=== PATIENT | male | born 1955 | race Caucasian/White ===

== ENCOUNTER 2018-04-25 06:39 | Day surgery (SDC) | payer OTHER ==
[~2018-04-25] VITALS: Ht 177.8 cm; Wt 95.3 kg
[~2018-04-25 06:39] MED LIST: CEPHALEXIN500 M1 PO; CIPRO 500MG TA500 MG PO; ERY-TAB500 MG PO; FENOFIBRATE160 MG PO; FISH OIL 1000MG1 CAP PO; IRON325 M1 PO; LIPITOR20 MG PO; LOPRESSOR 550 MG/TAB PO; LOW DOSE ASPIRI81 MG PO; MULTIPLE VITAMI1 CAP PO; NATURAL E400 IU PO; NEOMYCIN SULFA500 MG PO; NO HOME MEDICATIONS; NORCO 325 MG-51 TAB PO; OMEGA-31000 MG PO; PERCOCET 5/321 UDTAB PO; SERTRALINE50 MG PO; VITAMIN C500 MG PO; VITAMINC1000TA PO
[2018-04-25 07:13] VITALS: BP 133/83; PULSE 72; TEMP 97.1
--- NOTE | 2018-04-25 07:26 | NUR ---
TO BAY 2 CALL LIGHT IN REACH AT BEDSIDE
[2018-04-25 08:35] VITALS: BP 129/74; PULSE 66; TEMP 97.2
--- NOTE | 2018-04-25 08:35 | NUR ---
Pt returns from endo procedure. Pt ambulates from cart to recliner with RN assist. Monitors on and alarms set. Call light within reach. Report received from ZE Enriquez. Pt denies pain or nausea. Pt drowsy but answers all questions appropriately. Requests applesauce, muffin, and juice. presesnt in room.
[2018-04-25 08:50] VITALS: BP 125/78; PULSE 69; TEMP 97.2
--- NOTE | 2018-04-25 08:50 | NUR ---
Pt tolerating food and apple juice.
[2018-04-25 09:05] VITALS: BP 121/76; PULSE 61; TEMP 97.2
--- NOTE | 2018-04-25 09:15 | NUR ---
Dicharge instructions explained to pt and pt's . All questions answered to pt's satisfaction. Discharge instructions, discharge medications, and diagnosis paperwork given to pt. Pt denies any pain or nausea at this time.
--- NOTE | 2018-04-25 09:26 | NUR ---
Pt discharged and to car via wheelchair by Paula. Pt's with him.
== END 2018-04-25 09:26 | disposition home or self-care (01) ==
LOC: SDCO 06:39
DX: Z12.11 Encounter for screening for malignant neoplasm of colon (principal); Z86.010 Personal history of colon polyps; D12.2 Benign neoplasm of ascending colon; C61 Malignant neoplasm of prostate
CPT/HCPCS: OP; J2250; J2405; J3010; J7030